=== PATIENT | female | born 1990 | race African-American/Black ===

== ENCOUNTER 2021-08-02 11:17 | Emergency (ER) | payer MEDICAID ==
[~2021-08-02] VITALS: Ht 165.1 cm; Wt 70.0 kg
[2021-08-02 12:15] LABS: BASOPHILS % 0.5 % (0.0-2.0); CHLORIDE 105 mEq/L (98-107); EOSINOPHILS % 1.5 % (0.0-5.0); HEMATOCRIT. 41.7 % (36.0-48.0); HEMOGLOBIN. 13.9 g/dL (12.0-16.0); LYMPHOCYTES % 40.4 % (20.0-50.0); MEAN CORPUSCULAR VOLUME 90.4 fL (81.0-99.0); MEAN PLATELET VOLUME 7.7 fl (7.4-10.4); MONOCYTES % 7.8 % (2.0-8.0); NEUTROPHILS % 49.8 % (40.0-76.0); PLATELET 262 x1000/uL (130-400); RED BLOOD CELL COUNT 4.62 mill/uL (4.2-5.4); RED CELL DISTRIBUTION WIDTH 12.6 % (11.6-14.6)
[2021-08-02 12:17] LABS: CLARITY URINE CLOUDY (CLEAR); COLOR URINE DARK YELLOW (YELLOW); KETONES URINE 2+ (NEGATIVE); LEUKOCYTE ESTERASE URINE 1+ (NEGATIVE); NITRITE URINE NEGATIVE (NEGATIVE); OCCULT BLOOD URINE 2+ (NEGATIVE); PH URINE 5.5 (4.5-8.0); PROTEIN URINE TRACE (NEGATIVE); SPECIFIC GRAVITY URINE 1.033 (1.005-1.030)
[2021-08-02 12:21] LABS: UCG SCREEN POSITIVE
[2021-08-02] MEDS ORDERED: SODIUM CHLORIDE 0.9% 1,000 ML IV ONE (12:30)
[2021-08-02] MEDS ORDERED: ACETAMINOPHEN 325MG TABLET PO ONE (12:30)
[2021-08-02 12:38] LABS: B-HCG QUANTITATIVE 23362 mIU/mL (<3)
[2021-08-02] MEDS ORDERED: CEPH500C2 MT (14:40)
[2021-08-02] MEDS ORDERED: PNV1TABL76 MT (14:40)
[2021-08-02] MEDS ORDERED: POTASSIUM CHLORIDE 20MEQ TABLET SR PO NR (14:45)
[2021-08-02 15:34] VITALS: BP 98/44
== END 2021-08-02 15:47 | disposition home or self-care (01) ==
LOC: ER 11:17
DX: O20.0 Threatened abortion (principal); O23.41 Unspecified infection of urinary tract in pregnancy, first trimester; N39.0 Urinary tract infection, site not specified; Z3A.01 Less than 8 weeks gestation of pregnancy
CPT/HCPCS: 36415; 76801; 76817; 80053; 81003; 81025; 84702; 85025; 86850; 86900; 86901; 93005; 96360; 96361; 99285; J7030

== ENCOUNTER 2022-03-24 00:39 | Inpatient (IN) | payer MEDICAID ==
[~2022-03-24] VITALS: Ht 170.2 cm; Wt 81.6 kg
[~2022-03-24 00:39] MED LIST: CEPH500C2 MT; PNV1TABL76 MT
[2022-03-24] MEDS: LACTATED RINGERS 1,000 ML IV SCH ×2 (02:24→08:30)
[2022-03-24] MEDS: BUTORPHANOL TARTRATE 2 MG/ML VIAL IV PRN ×2 (02:30→08:25)
[2022-03-24] MEDS ORDERED: RHO(D) IMMUNE GLOBULIN 300 MCG/SYR IM ONE (06:45)
[2022-03-24] MEDS ORDERED: MISOPROSTOL 100MCG TABLET VG SCH (06:45)
[2022-03-24] MEDS ORDERED: NALOXONE HCL 0.4 MG/ML 1ML VIAL IM PRN (06:45)
[2022-03-24] MEDS ORDERED: LACTATED RINGERS 1,000 ML IV SCH (06:45)
[2022-03-24] MEDS ORDERED: BUTORPHANOL TARTRATE 2 MG/ML VIAL IV PRN (06:45)
[2022-03-24] MEDS ORDERED: CARBOPROST TROMETHAMINE 250 MCG/ML AMPUL IM PRN (06:45)
[2022-03-24] MEDS ORDERED: OXYTOCIN 30 UNITS/500ML NS PMX 500 ML IV SCH ×2 (06:45→13:30)
[2022-03-24] MEDS ORDERED: DEXT 5%/LACTATED RINGERS 1,000 ML IV SCH (06:45)
[2022-03-24] MEDS ORDERED: LIDOCAINE HCL 1% 20ML VIAL (Pyxis) INJ INFIL SCH (06:45)
[2022-03-24] MEDS ORDERED: METHYLERGONOVINE MALEATE 0.2 MG/ML IM PRN (06:45)
[2022-03-24] MEDS ORDERED: FERR325T6 PO (07:00)
[2022-03-24] MEDS ORDERED: OYSTER SHELL CALCIUM (07:00)
[2022-03-24] MEDS ORDERED: COLACE (07:00)
[2022-03-24] MEDS ORDERED: PENICILLIN G POTASSIUM 5 MMU in DEXT 5% WATER 100 ML IV SCH (07:30)
[2022-03-24 08:10] LABS: CLARITY URINE CLEAR (CLEAR); COLOR URINE YELLOW (YELLOW); KETONES URINE NEGATIVE (NEGATIVE); LEUKOCYTE ESTERASE URINE 1+ (NEGATIVE); NITRITE URINE NEGATIVE (NEGATIVE); OCCULT BLOOD URINE 2+ (NEGATIVE); PROTEIN URINE NEGATIVE (NEGATIVE); SPECIFIC GRAVITY URINE 1.013 (1.005-1.030)
[2022-03-24] MEDS ORDERED: ROPIVACAINE HCL/PF EPIDURAL 200 ML EPI ONE (09:30)
[2022-03-24 09:45] LABS: *AMPHETAMINES SCREEN URINE NEGATIVE (NEGATIVE); *BARBITURATES SCREEN URINE NEGATIVE (NEGATIVE); *BENZODIAZEPINES SCREEN URINE NEGATIVE (NEGATIVE); *COCAINE SCREEN URINE NEGATIVE (NEGATIVE); METHADONE URINE SCREEN NEGATIVE (NEGATIVE); OPIATES URINE SCREEN NEGATIVE (NEGATIVE); PHENCYCLIDINE URINE SCREEN NEGATIVE (NEGATIVE)
[2022-03-24 10:35] LABS: BASOPHILS % 0.2 % (0.0-2.0); EOSINOPHILS % 0.3 % (0.0-5.0); HEMATOCRIT. 35.5 % (36.0-48.0); HEMOGLOBIN. 11.8 g/dL (12.0-16.0); LYMPHOCYTES % 15.7 % (20.0-50.0); MEAN CORPUSCULAR HEMOGLOBIN 30.2 pg (28.0-32.0); MEAN CORPUSCULAR VOLUME 91.1 fL (81.0-99.0); MEAN PLATELET VOLUME 9.7 fl (7.4-10.4); MONOCYTES % 6.5 % (2.0-8.0); NEUTROPHILS % 77.3 % (40.0-76.0); PLATELET 159 x1000/uL (130-400); RED CELL DISTRIBUTION WIDTH 13.8 % (11.6-14.6)
[2022-03-24 10:36] LABS: CANNABINOID URINE SCREEN PRESUMTIVE POSITIVE (NEGATIVE)
[2022-03-24 10:46] LABS: CHLORIDE 107 mEq/L (98-107)
[2022-03-24 11:05] LABS: INR 0.9; PARTIAL THROMBOPLASTIN TIME 29.6 sec (23.4-31.0); PROTHROMBIN TIME 9.7 sec (9.6-11.0)
[2022-03-24] MEDS ORDERED: PENICILLIN G POTASSIUM 2.5 MMU in DEXTROSE 5% WATER 50 ML IV SCH (11:30)
[2022-03-24 11:47] LABS: HEPATITIS B SURFACE ANTIGEN NEGATIVE
[2022-03-24 12:56] VITALS: BP 90/50
[2022-03-24] MEDS ORDERED: IBUPROFEN 400MG TABLET PO PRN (13:30)
[2022-03-24] MEDS: IBUPROFEN 800MG TABLET PO PRN ×2 (14:08→23:57)
[2022-03-24 14:30] VITALS: BP 102/63
[2022-03-24 22:00] VITALS: BP 104/47
[2022-03-25 07:07] VITALS: BP 118/68
[2022-03-25 08:03] LABS: BASOPHILS % 0.4 % (0.0-2.0); EOSINOPHILS % 0.4 % (0.0-5.0); HEMATOCRIT. 27.6 % (36.0-48.0); HEMOGLOBIN. 9.4 g/dL (12.0-16.0); LYMPHOCYTES % 24.3 % (20.0-50.0); MEAN CORPUSCULAR HEMOGLOBIN 30.9 pg (28.0-32.0); MEAN PLATELET VOLUME 10.1 fl (7.4-10.4); MONOCYTES % 7.4 % (2.0-8.0); NEUTROPHILS % 67.5 % (40.0-76.0); PLATELET 139 x1000/uL (130-400); RED BLOOD CELL COUNT 3.03 mill/uL (4.2-5.4); RED CELL DISTRIBUTION WIDTH 13.8 % (11.6-14.6)
[2022-03-25 12:15] VITALS: BP 110/65
[2022-03-25] MEDS: IBUPROFEN 800MG TABLET PO PRN (17:03)
[2022-03-25 20:00] VITALS: BP 107/53
[2022-03-26 04:30] VITALS: BP 100/55
[2022-03-26] MEDS: IBUPROFEN 800MG TABLET PO PRN (04:38)
[2022-03-26 08:00] VITALS: BP 115/73
[2022-03-26] MEDS ORDERED: IBUP-2030 PO (09:01)
== END 2022-03-26 15:33 | disposition home or self-care (01) | DRG 560 ==
LOC: OBSVTOIN 00:39 → 8 EST LDRP 00:39 → 8 EST A/PP 13:12 → 8EST 21:48
PROVIDERS: ADMIT Specialist; ATTEND Specialist
PROC: 3E0234Z Introduction of Serum, Toxoid and Vaccine into Muscle, Percutaneous Approach (ICD-10-PCS; 2022-03-25)
PROC: 10E0XZZ Delivery of Products of Conception, External Approach (ICD-10-PCS; principal; 2022-03-26)
DX: O41.03X0 Oligohydramnios, third trimester, not applicable or unspecified (principal); Z37.0 Single live birth; O99.324 Drug use complicating childbirth; O26.893 Other specified pregnancy related conditions, third trimester; Z67.31 Type AB blood, Rh negative; F12.10 Cannabis abuse, uncomplicated; O99.02 Anemia complicating childbirth; Z3A.39 39 weeks gestation of pregnancy; Z20.822 Contact with and (suspected) exposure to COVID-19; D64.9 Anemia, unspecified
CPT/HCPCS: 36415; 76805; 76818; 80053; 80305; 80349; 81003; 85025; 86592; 86703; 86762; 86850; 86886; 86900; 87340; 87426; 90384; J0595; J2540; J7060; J7120; J2590; J2791